=== PATIENT | male | born 1985 | race Caucasian/White ===

== ENCOUNTER 2017-12-18 19:41 | Emergency (ER) | payer OTHER ==
[~2017-12-18] VITALS: Ht 195.5 cm; Wt 117.9 kg
[~2017-12-18 19:41] MED LIST: AUGMENTIN 875875 MG PO; BACTRIM DS 8001 TA1 PO; CLARITIN10 MG PO; CLEOCIN150 MG PO; KEFLEX500 MG PO; MOTRIN800 MG PO; NKHM; NORCO 325 MG-51 TAB PO; TRAMADOL HCL50 MG PO; VICODIN 5/500 505 MG PO
== END 2017-12-18 22:55 | disposition home or self-care (01) ==
LOC: ED 19:41
DX: M79.641 Pain in right hand (principal); Z90.49 Acquired absence of other specified parts of digestive tract

== ENCOUNTER → 2019-07-31 | Outpatient (CLI) | payer OTHER ==
[2019-07-31 10:17] LABS: HEMATOCRIT 47.8 % (42.0-52.0); HEMOGLOBIN 16.3 g/dl (14.0-18.0); MEAN CELL VOLUME 88.4 fl (80.0-94.0); MEAN CORPUSCULAR HGB 30.1 pg (27.0-31.0); MEAN CORPUSCULAR HGB CONC 34.1 g/dl (33.0-37.0); MEAN PLATELET VOLUME 10.8 fl (9.6-12.3); RED BLOOD COUNT 5.41 10*6/uL (4.50-5.90); RED CELL DISTRI WIDTH 12.2 % (0-14.5)
[2019-07-31 10:46] LABS: BUN 18 mg/dl (7-24); CHLORIDE 110 mmol/L (98-107); CHOLESTEROL 124 mg/dL (<200); CREATININE 1.06 mg/dL (0.70-1.30); SGPT/ALT 51 U/L (12-78); SODIUM 143 mmol/L (136-145); TRIGLYCERIDES 63 mg/dl (<150); VLDL CHOLESTEROL 13 mg/dL (6-40)
[2019-07-31 10:48] LABS: ALKALINE PHOSPHATASE 101 U/L (45-117); HDL CHOLESTEROL 47 mg/dl (40-60); LDL CHOLESTEROL 64 mg/dL (9-159); SGOT/AST 16 IU/L (3-35); TOTAL PROTEIN 7.4 gm/dL (6.4-8.2)
== END | disposition home or self-care (01) ==
LOC: LAB 09:05
PROVIDERS: Nurse Practitioner Family
DX: E78.00 Pure hypercholesterolemia, unspecified (principal); E55.9 Vitamin D deficiency, unspecified; J40 Bronchitis, not specified as acute or chronic; R53.83 Other fatigue

== ENCOUNTER → 2020-06-17 | Outpatient (CLI) | payer OTHER | END | disposition home or self-care (01) | LOC: COVID19 13:00 | PROVIDERS: ATTEND Family Medicine | DX: Z20.828 Contact with and (suspected) exposure to other viral communicable diseases (principal) ==